=== PATIENT | male | born 2000 | race Caucasian/White ===

== ENCOUNTER 2022-06-02 00:23 | Emergency (ER) | payer BC ==
[2022-06-02 10:04] LABS: #Eosinphils 0.2 10x3/uL (0.0-0.5); #Monocytes 0.2 10x3/uL (0.0-1.1); #Neutrophils 4.3 10x3/uL (1.5-8.4); %Basophils 0.5 % (0.0-2.0); %Eosinophils 4.2 % (0.0-6.0); %Lymphocytes 14.6 % (18.0-47.0); %Monocytes 3.2 % (0.0-10.0); %Neutrophils 77.1 % (40.0-75.0); Hemoglobin 7.5 g/dL (13.5-17.5); Mean Corpuscular HGB CONC 35.2 g/dL (32.0-36.0); Mean Corpuscular Hemoglobin 33.8 pg (27.0-33.0); Mean Corpuscular Volume 95.9 fl (81.2-95.1); Mean Platelet Volume 10.2 fl (7.4-10.4); Platelet Count 108 10x3/uL (150-450); RBC Distribution Width 14.9 % (11.5-14.5); Red Blood Cell (RBC) Count 2.22 10x6/uL (4.32-5.72); White Blood Cell (WBC) Count 5.5 10x3/uL (3.5-10.5)
[2022-06-02 11:50] LABS: Platelet Morphology Comment Appears Decreased
[2022-06-02 11:51] LABS: Anisocytosis SLIGHT = 6-15 cells (100X) (0-5/hpf)
== END 2022-06-02 01:57 | disposition home or self-care (01) ==
LOC: CSHERS 00:23
DX: D64.9 Anemia, unspecified (principal); I10 Essential (primary) hypertension; Z79.899 Other long term (current) drug therapy
CPT/HCPCS: 85025; 90935; G0257

== ENCOUNTER 2022-06-02 09:13 | Day surgery (SDC) | payer BC ==
[2022-06-02] MEDS ORDERED: EPOETIN ALFA-EPBX (ESRD) 10,000 UNIT/ML VIAL IVP PRN (09:24)
[2022-06-02] MEDS ORDERED: Heparin 10,000 UNITS/ 10 ML VIAL SLOW IVP PRN (09:25)
[2022-06-02 09:27] VITALS: BMI 20.7
[2022-06-02] MEDS ORDERED: Epoetin (ESRD) 10,000 UNITS/ML VIAL IVP PRN (09:40)
== END 2022-06-02 15:16 | disposition home or self-care (01) ==
LOC: CSHSDC/OP 09:13
PROVIDERS: ATTEND Internal Medicine Nephrology
DX: N18.6 End stage renal disease (principal); D63.1 Anemia in chronic kidney disease; Z99.2 Dependence on renal dialysis; D64.9 Anemia, unspecified; I10 Essential (primary) hypertension; Z79.899 Other long term (current) drug therapy
CPT/HCPCS: 36430; 85025; 86850; 86900; 86901; 90935; 99281; G0257; J1644; P9016; Q4081; Q5105

== ENCOUNTER 2022-08-07 06:50 | Observation (INO) | payer BC ==
[2022-08-07 08:08] LABS: #Eosinphils 0.3 10x3/uL (0.0-0.5); #Monocytes 0.2 10x3/uL (0.0-1.1); #Neutrophils 1.8 10x3/uL (1.5-8.4); %Basophils 0.6 % (0.0-2.0); %Lymphocytes 24.1 % (18.0-47.0); %Monocytes 7.4 % (0.0-10.0); %Neutrophils 57.6 % (40.0-75.0); Hemoglobin 6.5 g/dL (13.5-17.5); Mean Corpuscular HGB CONC 34.8 g/dL (32.0-36.0); Mean Corpuscular Hemoglobin 30.5 pg (27.0-33.0); Mean Corpuscular Volume 87.8 fl (81.2-95.1); Mean Platelet Volume 10.5 fl (7.4-10.4); Platelet Count 81 10x3/uL (150-450); RBC Distribution Width 14.3 % (11.5-14.5); Red Blood Cell (RBC) Count 2.13 10x6/uL (4.32-5.72); White Blood Cell (WBC) Count 3.1 10x3/uL (3.5-10.5)
[2022-08-07 08:20] LABS: ALT (SGPT) 11 U/L (8-55); AST (SGOT) 16 U/L (5-34); Albumin 3.9 g/dL (3.5-5.0); Alkaline Phosphatase 55 U/L (40-110); Anion Gap 15 mmol/L (10-20); BUN (Urea Nitrogen) 18 mg/dL (8.9-20.6); Bilirubin, Total 0.6 mg/dL (0.2-1.2); CK (CPK) 78 U/L (30-200); Calc. Creatinine Clearance 0 mL/min (70-130); Calcium 8.7 mg/dL (7.8-10.44); Carbon Dioxide 33 mmol/L (22-29); Chloride 98 mmol/L (98-107); Estimated GFR 13; Globulin 2.3 g/dL (2.4-3.5); Glucose 108 mg/dL (70-105); Potassium 3.7 mmol/L (3.5-5.1); Protein, Total 6.2 g/dL (6.0-8.3); Sodium 142 mmol/L (136-145)
[2022-08-07 08:42] LABS: CKMB 0.4 ng/mL (0-6.6)
[2022-08-07 08:45] LABS: Platelet Morphology Comment Appears Decreased; RBC Morphology Normal
[2022-08-07 12:40] VITALS: BMI 19.8
== END 2022-08-07 18:30 | disposition home or self-care (01) ==
LOC: CSHERS 06:50 → CSHERHOLD 12:38 → INTOOBSV 12:38
PROVIDERS: ADMIT Hospitalist; ATTEND Hospitalist
DX: D64.9 Anemia, unspecified (principal); R06.02 Shortness of breath; I44.0 Atrioventricular block, first degree; R94.31 Abnormal electrocardiogram [ECG] [EKG]
CPT/HCPCS: 36430; 71045; 80053; 82550; 82553; 83880; 84484; 85025; 86850; 86900; 86901; 90935; 93005; G0257; P9016